=== PATIENT | male | born 1935 | race Caucasian/White ===

== ENCOUNTER 2019-09-27 20:37 | Emergency (ER) | payer MEDICARE, OTHER ==
[~2019-09-27] VITALS: Ht 165.1 cm; Wt 70.5 kg
[2019-09-27 20:55] VITALS: BP 169/78; Ht 165.1 cm; Wt 70.5 kg
[2019-09-27] MEDS ORDERED: LISINOPRIL10 MG PO (20:56)
[2019-09-27] MEDS ORDERED: GENTAK3.5 GM EACH EYE (21:31)
== END 2019-09-27 21:34 | disposition home or self-care (01) ==
LOC: D.ER 20:37
DX: S05.02XA Injury of conjunctiva and corneal abrasion without foreign body, left eye, initial encounter (principal); W22.8XXA Striking against or struck by other objects, initial encounter; Y93.9 Activity, unspecified; Y92.9 Unspecified place or not applicable; I10 Essential (primary) hypertension; E11.9 Type 2 diabetes mellitus without complications